=== PATIENT | male | born 1945 | race Two or more races ===

== ENCOUNTER 2022-12-22 19:39 | Inpatient (IN) | payer OTHER, MEDICAID ==
[~2022-12-22] VITALS: Ht 188 cm; Wt 109.7 kg
[2022-12-22 21:14] LABS: Basophils # (auto) 0.1 10 ^3/uL (0-0.2); Eosinophils # (auto) 0.4 10 ^3/uL (0-0.8); Eosinophils % (auto) 2.7 % (0.0-7.0); Hemoglobin 12.8 g/dL (13.5-17.5)
[2022-12-22 21:16] LABS: Basophils % (auto) 0.5 % (0.0-2.0); Lymphocytes % (auto) 7.4 % (10.0-50.0); Mean Corpuscular Hemoglobin 31.7 pg (28.0-32.0); Mean Corpuscular Hgb Conc. 30.4 g/dL (32.0-36.0); Mean Corpuscular Volume 104.3 fL (80.0-100.0); Monocytes # (auto) 1.1 10 ^3/uL (0-1.3); Neutrophils # (auto) 10.8 10 ^3/uL (1.6-8.6); Neutrophils % (auto) 81.4 % (37.0-80.0); Nucleated Red Blood Cells % 0.3 %; Red Blood Cells 4.02 10^6/uL (4.5-5.90); Red Cell Distribution Width 17.6 % (11.8-14.3); White Blood Cell 13.3 10^3/uL (4.4-10.8)
[2022-12-22 21:32] LABS: Lactic Acid w/Reflex 2.6 mmol/L (0.4-2.0)
[2022-12-22 21:56] LABS: Albumin 4.8 g/dL (3.2-4.8); Alkaline Phosphatase 81 U/L (46-116); Anion Gap 10 (5-15); Aspartate Aminotransferase 14 U/L (13-40); BUN/Creatinine Ratio 3.4 (10.0-20.0); Bilirubin, Total 0.3 mg/dL (0.2-1.0); Blood Urea Nitrogen 13 mg/dL (9-23); Calcium 9.3 mg/dL (8.5-10.1); Carbon Dioxide 23 mmol/L (20-30); Chloride 101 mmol/L (98-107); Glucose 127 mg/dL (74-106); Potassium 4.1 mmol/L (3.5-5.1); Sodium 134 mmol/L (136-145); Total Protein 8.4 g/dL (5.7-8.2)
[2022-12-22 22:00] LABS: Alanine Aminotransferase 9 U/L (7-40)
[2022-12-22] MEDS ORDERED: ACETAMINOPHEN 325 MG TAB PO ONE (22:15)
[2022-12-22] MEDS ORDERED: ONDANSETRON HCL 4 MG/2 ML VIAL IV ONE (22:15)
[2022-12-22 22:30] VITALS: PULSE 102; RESP 20; O2SAT 100
[2022-12-22 22:46] LABS: Partial Thromboplastin Time 30.5 SEC (24.5-34.5); Prothrombin Time 10.5 sec (9.3-11.8)
[2022-12-23] MEDS ORDERED: ONDANSETRON HCL 4 MG/2 ML VIAL IV PRN (01:00)
[2022-12-23] MEDS ORDERED: ACETAMINOPHEN 325 MG TAB PO PRN (01:00)
[2022-12-23] MEDS ORDERED: DOCUSATE SOD 100 MG CAP PO PRN (01:00)
[2022-12-23] MEDS ORDERED: MORPHINE SULFATE INJ 2 MG/ml SYRG IV PRN (01:00)
[2022-12-23] MEDS ORDERED: NITROGLYCERIN 0.4 MG SL TAB SL PRN (01:00)
[2022-12-23] MEDS ORDERED: DEXTROSE (50%) 50ML SYRG IV PRN (02:30)
[2022-12-23] MEDS: InsuLIN REG 1unit/0.01ml Soln (100units/ml) SC SCH ×4 (06:44→22:00)
[2022-12-23] MEDS: ACCU-CHEK COMFORT CURVE STRIP VI SCH ×4 (06:44→22:00)
[2022-12-23 07:20] VITALS: PULSE 105; RESP 21; O2SAT 99
[2022-12-23 08:30] LABS: Basophils # (auto) 0.1 10 ^3/uL (0-0.2); Basophils % (auto) 0.9 % (0.0-2.0); Eosinophils # (auto) 0.3 10 ^3/uL (0-0.8); Eosinophils % (auto) 3.3 % (0.0-7.0); Hematocrit 39.1 % (41.0-53.0); Hemoglobin 11.7 g/dL (13.5-17.5); Lymphocytes # (auto) 1.2 10 ^3/uL (0.4-5.4); Mean Corpuscular Hemoglobin 31.5 pg (28.0-32.0); Mean Corpuscular Hgb Conc. 29.9 g/dL (32.0-36.0); Mean Corpuscular Volume 105.6 fL (80.0-100.0); Monocytes # (auto) 0.7 10 ^3/uL (0-1.3); Monocytes % (auto) 6.6 % (0.0-12.0); Neutrophils # (auto) 7.6 10 ^3/uL (1.6-8.6); Neutrophils % (auto) 77.2 % (37.0-80.0); Nucleated Red Blood Cells % 0.1 %; Red Blood Cells 3.71 10^6/uL (4.5-5.90); Red Cell Distribution Width 17.6 % (11.8-14.3); White Blood Cell 9.9 10^3/uL (4.4-10.8)
[2022-12-23 08:32] LABS: Chloride 101 mmol/L (98-107); Potassium 4.3 mmol/L (3.5-5.1); Sodium 135 mmol/L (136-145)
[2022-12-23 08:33] LABS: Anion Gap 8 (5-15); Carbon Dioxide 26 mmol/L (20-30)
[2022-12-23 08:34] LABS: Calcium 9.3 mg/dL (8.5-10.1)
[2022-12-23 08:38] LABS: Glucose 158 mg/dL (74-106)
[2022-12-23 08:39] LABS: BUN/Creatinine Ratio 3.6 (10.0-20.0); Blood Urea Nitrogen 17 mg/dL (9-23)
[2022-12-23 08:40] LABS: Lactic Acid w/Reflex 2.1 mmol/L (0.4-2.0)
[2022-12-23] MEDS ORDERED: ATORVASTATIN 20 MG TAB PO SCH (10:00)
[2022-12-23] MEDS: PANTOPRAZOLE 40 MG/10 ML VIAL INJ IV SCH (10:39)
[2022-12-23] MEDS: APIXABAN 2.5 MG TAB PO SCH ×2 (10:40→22:44)
[2022-12-23] MEDS: METOPROLOL TARTRATE 25 MG TAB PO SCH ×2 (10:40→22:48)
[2022-12-23] MEDS: AMIODARONE HCL 200 MG TAB PO SCH ×2 (14:17→22:00)
[2022-12-23] MEDS: cefTRIAXone 1GM/50ML D5W 50 ML IV SCH (14:17)
[2022-12-23 14:42] LABS: LDL Cholesterol 42 mg/dL (< 100); Triglycerides 125 mg/dL (< 150)
[2022-12-23 14:44] LABS: Cholesterol 116 mg/dL (< 200); HDL Cholesterol 49 mg/dL (40-59)
[2022-12-23 17:58] VITALS: RESP 18
[2022-12-23 20:00] VITALS: BP 116/78; PULSE 91; RESP 18; RESP 20; TEMP 97.8; O2SAT 95
[2022-12-23] MEDS ORDERED: MET25T PO (20:55)
[2022-12-23] MEDS ORDERED: ATOR10TA52 PO (20:55)
[2022-12-23] MEDS ORDERED: APIX2.5T PO (20:55)
[2022-12-23] MEDS ORDERED: PANT40T PO (20:55)
[2022-12-23] MEDS ORDERED: [UNRECOGNIZED DRUG - CODE] PO (20:55)
[2022-12-23 22:00] VITALS: BP 116/78; PULSE 91; RESP 20; TEMP 97.8; O2SAT 100
[2022-12-23] MEDS: ATORVASTATIN 20 MG TAB PO SCH (22:50)
[2022-12-24] VITALS (7 sets, daily range): BP systolic 108–147; BP diastolic 67–72; PULSE 73–90; RESP 16–20; TEMP 97.5–98.9; O2SAT 95–100
[2022-12-24] MEDS: EMPAGLIFLOZIN 10 MG TAB PO SCH ×2 (04:51→21:23)
[2022-12-24] MEDS: InsuLIN REG 1unit/0.01ml Soln (100units/ml) SC SCH ×4 (04:51→21:23)
[2022-12-24] MEDS: ACCU-CHEK COMFORT CURVE STRIP VI SCH ×5 (04:51→21:24)
[2022-12-24 05:49] LABS: Basophils # (auto) 0.1 10 ^3/uL (0-0.2); Eosinophils # (auto) 0.6 10 ^3/uL (0-0.8); Hemoglobin 11.6 g/dL (13.5-17.5); Monocytes # (auto) 0.9 10 ^3/uL (0-1.3); Nucleated Red Blood Cells % 0.1 %
[2022-12-24 05:54] LABS: Eosinophils % (auto) 7.4 % (0.0-7.0); Hematocrit 38.4 % (41.0-53.0); Lymphocytes # (auto) 1.3 10 ^3/uL (0.4-5.4); Lymphocytes % (auto) 16.3 % (10.0-50.0); Mean Corpuscular Hemoglobin 32.2 pg (28.0-32.0); Mean Corpuscular Hgb Conc. 30.2 g/dL (32.0-36.0); Mean Corpuscular Volume 106.4 fL (80.0-100.0); Monocytes % (auto) 11.1 % (0.0-12.0); Neutrophils % (auto) 64.2 % (37.0-80.0); Red Cell Distribution Width 17.5 % (11.8-14.3); White Blood Cell 7.8 10^3/uL (4.4-10.8)
[2022-12-24 06:20] LABS: Anion Gap 9 (5-15); Calcium 9.2 mg/dL (8.7-10.4); Carbon Dioxide 24 mmol/L (20-30); Chloride 102 mmol/L (98-107); Potassium 4.7 mmol/L (3.5-5.1); Sodium 135 mmol/L (136-145)
[2022-12-24 06:26] LABS: BUN/Creatinine Ratio 3.9 (10.0-20.0); Glucose 122 mg/dL (74-106)
[2022-12-24 06:39] LABS: Blood Urea Nitrogen 27 mg/dL (9-23)
[2022-12-24] MEDS: SEVELAMER 800 MG TAB PO SCH ×3 (08:37→19:04)
[2022-12-24] MEDS: cefTRIAXone 1GM/50ML D5W 50 ML IV SCH (08:39)
[2022-12-24] MEDS: PANTOPRAZOLE 40 MG/10 ML VIAL INJ IV SCH (08:39)
[2022-12-24] MEDS: METOPROLOL TARTRATE 25 MG TAB PO SCH ×2 (08:59→22:00)
[2022-12-24] MEDS: APIXABAN 2.5 MG TAB PO SCH ×2 (09:00→22:10)
[2022-12-24] MEDS: AMIODARONE HCL 200 MG TAB PO SCH (10:00)
[2022-12-24] MEDS ORDERED: ATORVASTATIN 20 MG TAB PO SCH (22:00)
[2022-12-24] MEDS: ATORVASTATIN 20 MG TAB PO SCH (22:10)
[2022-12-25] VITALS (7 sets, daily range): BP systolic 102–132; BP diastolic 50–74; PULSE 72–107; RESP 18–19; TEMP 97.5–98.1; O2SAT 93–100
[2022-12-25 06:59] LABS: Basophils # (auto) 0.1 10 ^3/uL (0-0.2); Lymphocytes # (auto) 1.5 10 ^3/uL (0.4-5.4); Monocytes # (auto) 0.7 10 ^3/uL (0-1.3); Red Cell Distribution Width 17.3 % (11.8-14.3)
[2022-12-25 07:02] LABS: Basophils % (auto) 0.9 % (0.0-2.0); Eosinophils # (auto) 0.6 10 ^3/uL (0-0.8); Eosinophils % (auto) 7.2 % (0.0-7.0); Hematocrit 35.6 % (41.0-53.0); Hemoglobin 11.1 g/dL (13.5-17.5); Lymphocytes % (auto) 16.4 % (10.0-50.0); Mean Corpuscular Hemoglobin 32.5 pg (28.0-32.0); Mean Corpuscular Hgb Conc. 31.1 g/dL (32.0-36.0); Mean Corpuscular Volume 104.5 fL (80.0-100.0); Monocytes % (auto) 8.3 % (0.0-12.0); Neutrophils % (auto) 67.2 % (37.0-80.0); Nucleated Red Blood Cells % 0.1 %; Red Blood Cells 3.41 10^6/uL (4.5-5.90); White Blood Cell 8.9 10^3/uL (4.4-10.8)
[2022-12-25 07:41] LABS: Chloride 102 mmol/L (98-107); Sodium 136 mmol/L (136-145)
[2022-12-25 07:42] LABS: Anion Gap 9 (5-15); Calcium 9.3 mg/dL (8.5-10.1); Carbon Dioxide 25 mmol/L (20-30)
[2022-12-25 07:47] LABS: BUN/Creatinine Ratio 4.1 (10.0-20.0); Blood Urea Nitrogen 33 mg/dL (9-23); Glucose 92 mg/dL (74-106)
[2022-12-25] MEDS: cefTRIAXone 1GM/50ML D5W 50 ML IV SCH (08:16)
[2022-12-25] MEDS: SEVELAMER 800 MG TAB PO SCH ×3 (08:16→17:52)
[2022-12-25] MEDS: METOPROLOL TARTRATE 25 MG TAB PO SCH ×2 (10:00→21:51)
[2022-12-25] MEDS: APIXABAN 2.5 MG TAB PO SCH ×2 (10:29→22:05)
[2022-12-25] MEDS: PANTOPRAZOLE 40 MG/10 ML VIAL INJ IV SCH (10:29)
[2022-12-25] MEDS: InsuLIN REG 1unit/0.01ml Soln (100units/ml) SC SCH ×4 (11:30→21:52)
[2022-12-25] MEDS: ACCU-CHEK COMFORT CURVE STRIP VI SCH ×4 (11:30→21:52)
[2022-12-25] MEDS: EMPAGLIFLOZIN 10 MG TAB PO SCH (21:51)
[2022-12-25] MEDS: ATORVASTATIN 20 MG TAB PO SCH (22:05)
[2022-12-26] VITALS (8 sets, daily range): BP systolic 100–125; BP diastolic 64–74; PULSE 65–118; RESP 18–21; TEMP 97.5–98.7; O2SAT 91–97
[2022-12-26 06:16] LABS: Basophils # (auto) 0.1 10 ^3/uL (0-0.2); Basophils % (auto) 0.8 % (0.0-2.0); Eosinophils # (auto) 0.4 10 ^3/uL (0-0.8); Hematocrit 33.7 % (41.0-53.0); Hemoglobin 10.7 g/dL (13.5-17.5); Lymphocytes # (auto) 1.2 10 ^3/uL (0.4-5.4); Lymphocytes % (auto) 15.2 % (10.0-50.0); Mean Corpuscular Hemoglobin 32.4 pg (28.0-32.0); Mean Corpuscular Hgb Conc. 31.7 g/dL (32.0-36.0); Monocytes # (auto) 0.6 10 ^3/uL (0-1.3); Monocytes % (auto) 7.5 % (0.0-12.0); Neutrophils # (auto) 5.8 10 ^3/uL (1.6-8.6); Neutrophils % (auto) 71.5 % (37.0-80.0); Red Cell Distribution Width 17.3 % (11.8-14.3); White Blood Cell 8.2 10^3/uL (4.4-10.8)
[2022-12-26 06:40] LABS: Calcium 9.1 mg/dL (8.7-10.4); Chloride 101 mmol/L (98-107); Sodium 135 mmol/L (136-145)
[2022-12-26 06:41] LABS: Anion Gap 9 (5-15); Carbon Dioxide 25 mmol/L (20-30)
[2022-12-26 06:46] LABS: BUN/Creatinine Ratio 5.6 (10.0-20.0); Glucose 98 mg/dL (74-106)
[2022-12-26 06:47] LABS: Blood Urea Nitrogen 52 mg/dL (9-23)
[2022-12-26] MEDS: SEVELAMER 800 MG TAB PO SCH ×3 (08:44→18:20)
[2022-12-26] MEDS: cefTRIAXone 1GM/50ML D5W 50 ML IV SCH (08:45)
[2022-12-26] MEDS: METOPROLOL TARTRATE 25 MG TAB PO SCH (10:00)
[2022-12-26] MEDS: PANTOPRAZOLE 40 MG/10 ML VIAL INJ IV SCH (11:18)
[2022-12-26] MEDS: APIXABAN 2.5 MG TAB PO SCH (11:18)
[2022-12-26] MEDS: InsuLIN REG 1unit/0.01ml Soln (100units/ml) SC SCH ×2 (11:30→17:00)
[2022-12-26] MEDS: ACCU-CHEK COMFORT CURVE STRIP VI SCH ×2 (11:30→18:19)
[2022-12-26] MEDS ORDERED: SODIUM CHL 0.9% 1000 ML BAG XX ONE (13:45)
[2022-12-26 16:15] LABS: Chloride 100 mmol/L (98-107); Potassium 4.2 mmol/L (3.5-5.1); Sodium 136 mmol/L (136-145)
[2022-12-26 16:16] LABS: Anion Gap 7 (5-15); Calcium 8.8 mg/dL (8.5-10.1); Carbon Dioxide 29 mmol/L (20-30)
[2022-12-26 16:21] LABS: BUN/Creatinine Ratio 5.9 (10.0-20.0); Glucose 117 mg/dL (74-106)
[2022-12-26 16:29] LABS: Blood Urea Nitrogen 42 mg/dL (9-23)
[2022-12-26] MEDS ORDERED: DIGOXIN (250MCG/ML) 2 ML AMPULE ONE (17:27)
[2022-12-26] MEDS ORDERED: DIGOXIN (250MCG/ML) 2 ML AMPULE IV ONE (17:30)
[2022-12-26 17:47] LABS: Chloride 100 mmol/L (98-107); Potassium 3.9 mmol/L (3.5-5.1); Sodium 134 mmol/L (136-145)
[2022-12-26 17:48] LABS: Anion Gap 8 (5-15); Calcium 8.9 mg/dL (8.7-10.4); Carbon Dioxide 26 mmol/L (20-30)
[2022-12-26 17:53] LABS: BUN/Creatinine Ratio 4.9 (10.0-20.0); Glucose 151 mg/dL (74-106)
[2022-12-26 18:07] LABS: Blood Urea Nitrogen 32 mg/dL (9-23)
[2022-12-26] MEDS ORDERED: EPOETIN ALFA-EPBX 4,000 UNIT/ML VIAL SC ONE (21:00)
== END 2022-12-26 21:03 | disposition home health service (06) | DRG 64 ==
LOC: ER 19:39 → EDBD 19:39 → TELE 12-23 01:13 → TELE-EAST 12-23 17:55 → EAST 12-25 10:25 → TELE-EAST 12-26 07:16
PROVIDERS: ADMIT Nurse Practitioner Family; ATTEND Nurse Practitioner Family
PROC: 5A1D70Z Performance of Urinary Filtration, Intermittent, Less than 6 Hours Per Day (ICD-10-PCS; principal; 2022-12-26)
DX: I63.9 Cerebral infarction, unspecified (principal); N18.6 End stage renal disease; I48.20 Chronic atrial fibrillation, unspecified; I13.2 Hypertensive heart and chronic kidney disease with heart failure and with stage 5 chronic kidney disease, or end stage renal disease; I50.20 Unspecified systolic (congestive) heart failure; E87.20 Acidosis, unspecified; I48.92 Unspecified atrial flutter; I69.351 Hemiplegia and hemiparesis following cerebral infarction affecting right dominant side; R53.1 Weakness; E10.22 Type 1 diabetes mellitus with diabetic chronic kidney disease; R23.3 Spontaneous ecchymoses; E10.65 Type 1 diabetes mellitus with hyperglycemia; E66.01 Morbid (severe) obesity due to excess calories; D63.1 Anemia in chronic kidney disease; J44.9 Chronic obstructive pulmonary disease, unspecified; Z91.199 Patient's noncompliance with other medical treatment and regimen due to unspecified reason; Z99.2 Dependence on renal dialysis; Z79.4 Long term (current) use of insulin; Z68.31 Body mass index [BMI] 31.0-31.9, adult
CPT/HCPCS: 36415; 70450; 70551; 71045; 80048; 80053; 80061; 82306; 82962; 83036; 83605; 83735; 83880; 83970; 84100; 84443; 84484; 85025; 85610; 85730; 87040; 90935; 93005; 93306; 93971; 97110; 97116; 97163; 97530; 99291; C9113; G0378; J0696; J1642; J1815